=== PATIENT | female | born 1975 | race Caucasian/White ===

== ENCOUNTER → 2017-02-26 | Outpatient (CLI) | payer OTHER ==
[~2017-02-26] MED LIST: IUD; ZOLP10TA PO
== END | disposition home or self-care (01) ==
LOC: CFH 10:29
PROVIDERS: ATTEND Obstetrics & Gynecology Maternal & Fetal Medicine
DX: Z12.31 Encounter for screening mammogram for malignant neoplasm of breast (principal)
CPT/HCPCS: 77063; G0202

== ENCOUNTER → 2018-04-08 | Outpatient (CLI) | payer OTHER | END | disposition home or self-care (01) | LOC: CFH 12:55 | PROVIDERS: ATTEND Obstetrics & Gynecology Maternal & Fetal Medicine | DX: N60.01 Solitary cyst of right breast (principal) | CPT/HCPCS: 77065 ==

== ENCOUNTER → 2018-06-13 | Outpatient (CLI) | payer OTHER ==
[~2018-06-13] MED LIST changes: +LIDOCAINE 1%, 20ML ONE; +LIDOCAINE 1%-EPI 1:100K, 20ML ONE; +SODIUM BICARBONATE 4.0%, 5ML ONE
== END | disposition home or self-care (01) ==
LOC: CFH 10:09
PROVIDERS: ATTEND Surgery
DX: N60.21 Fibroadenosis of right breast (principal); N60.01 Solitary cyst of right breast
CPT/HCPCS: 19000; 19083; 77065; 88112; 88305; J3490

== ENCOUNTER 2019-05-26 09:19 | Outpatient (CLI) | payer OTHER ==
[~2019-05-26 09:19] MED LIST changes: -LIDOCAINE 1%, 20ML ONE; -LIDOCAINE 1%-EPI 1:100K, 20ML ONE; -SODIUM BICARBONATE 4.0%, 5ML ONE
== END 2019-05-26 23:59 | disposition home or self-care (01) ==
LOC: CFH 09:19
PROVIDERS: ATTEND Obstetrics & Gynecology Maternal & Fetal Medicine
DX: Z12.31 Encounter for screening mammogram for malignant neoplasm of breast (principal)
CPT/HCPCS: 77063; 77067

== ENCOUNTER 2020-03-21 07:31 | Outpatient (CLI) | payer OTHER | END 2020-03-21 23:59 | disposition home or self-care (01) | LOC: CFH 07:31 | PROVIDERS: ATTEND Nurse Practitioner | DX: N60.01 Solitary cyst of right breast (principal); N60.02 Solitary cyst of left breast; R92.8 Other abnormal and inconclusive findings on diagnostic imaging of breast | CPT/HCPCS: 76642; 77066; G0279; 77063 ==